=== PATIENT | female | born 1975 | race Caucasian/White ===

== ENCOUNTER → 2023-09-08 13:07 | Outpatient (BNVA) | payer OTHER, SELFPAY | PROVIDERS: Visit Provider Physician Assistant | DX: S66.317A Strain of extensor muscle, fascia and tendon of left little finger at wrist and hand level, initial encounter (principal); W21.01XA Struck by football, initial encounter | CPT/HCPCS: 99204 ==

== ENCOUNTER → 2023-09-14 15:44 | Outpatient (BNVA) | payer OTHER, SELFPAY | PROVIDERS: Visit Provider Physician Assistant | DX: S66.317D Strain of extensor muscle, fascia and tendon of left little finger at wrist and hand level, subsequent encounter (principal); W21.01XD Struck by football, subsequent encounter | CPT/HCPCS: 99213 ==

== ENCOUNTER 2024-04-10 10:00 | Outpatient (RCR) | payer OTHER, SELFPAY | END 2024-04-10 10:42 | disposition home or self-care (01) | LOC: HO.OT 10:00 | PROVIDERS: PCP Student in an Organized Health Care Education/Training Program; Visit Provider Orthopaedic Surgery | DX: M79.642 Pain in left hand (principal) | CPT/HCPCS: 29130; 97110; 97140; 97166; 97760 ==